=== PATIENT | male | born 1970 | race Two or more races ===

== ENCOUNTER → 2017-06-02 | Outpatient (CLI) | payer OTHER ==
[~2017-06-02] VITALS: Ht 182.9 cm; Wt 80.7 kg
[~2017-06-02] MED LIST: AMLODIPINE BESYL5 MG PO; FINASTERIDE1 MG PO
== END | disposition home or self-care (01) ==
LOC: PPHC 15:09
DX: I10 Essential (primary) hypertension (principal); Z76.0 Encounter for issue of repeat prescription

== ENCOUNTER → 2022-03-21 | Outpatient (CLI) | payer OTHER | END | disposition home or self-care (01) | LOC: NUCLEAR 10:00 | PROVIDERS: ATTEND Internal Medicine | DX: I34.1 Nonrheumatic mitral (valve) prolapse (principal) ==

== ENCOUNTER 2022-05-13 10:43 | Outpatient (CLI) | payer OTHER | END 2022-05-13 10:51 | disposition home or self-care (01) | LOC: SONOGRAMA 10:43 | PROVIDERS: ATTEND Internal Medicine | DX: I71.40 Abdominal aortic aneurysm, without rupture, unspecified (principal) ==